=== PATIENT | female | born 1970 | race Caucasian/White ===

== ENCOUNTER 2020-03-27 13:28 | Outpatient (REF) | payer MEDICAID, SELFPAY | END 2020-03-27 13:29 | disposition home or self-care (01) | LOC: HO.LAB 13:28 | PROVIDERS: Visit Provider Internal Medicine | DX: Z20.828 Contact with and (suspected) exposure to other viral communicable diseases (principal) | CPT/HCPCS: 87635 ==

== ENCOUNTER 2020-04-09 09:39 | Outpatient (REF) | payer MEDICAID, SELFPAY ==
--- NOTE | 2020-04-09 09:54 | XR_ITS ---
EXAMINATION: XR HIP, RIGHT CLINICAL INFORMATION: Pain COMPARISON: None TECHNIQUE: Two views of the right hip. FINDINGS: No acute fracture or dislocation. Femoral head is spherical. Small acetabular osteophytes. Hip joint space preserved. Flocculent calcification present along the posterior aspect of the greater trochanter at the posterior insertion of the gluteus medius. Soft tissues otherwise unremarkable. XR/XR hip RT min 2V IMPRESSION: Mild acetabular osteophytosis Greater trochanteric enthesopathy involving the gluteus medius tendon.
== END 2020-04-09 09:40 | disposition home or self-care (01) ==
LOC: HO.XRAY 09:39
PROVIDERS: PCP Internal Medicine; Visit Provider Internal Medicine
DX: M25.551 Pain in right hip (principal)
CPT/HCPCS: 73502

== ENCOUNTER → 2020-05-11 09:46 | Outpatient (BNVA) | payer MEDICAID, SELFPAY | PROVIDERS: Visit Provider Orthopaedic Surgery | DX: M70.61 Trochanteric bursitis, right hip (principal); M76.9 Unspecified enthesopathy, lower limb, excluding foot | CPT/HCPCS: 99202 ==

== ENCOUNTER 2020-05-22 14:01 | Outpatient (RCR) | payer MEDICAID, SELFPAY ==
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
== END 2020-07-08 14:29 | disposition other institution (70) ==
LOC: HO.PT 14:01
PROVIDERS: Visit Provider Orthopaedic Surgery
DX: M70.61 Trochanteric bursitis, right hip (principal); M76.899 Other specified enthesopathies of unspecified lower limb, excluding foot
CPT/HCPCS: 97161

== ENCOUNTER 2020-05-22 15:50 | Outpatient (REF) | payer MEDICAID, SELFPAY | END 2020-05-22 15:51 | disposition home or self-care (01) | LOC: HO.LAB 15:50 | PROVIDERS: Visit Provider Internal Medicine | DX: Z20.828 Contact with and (suspected) exposure to other viral communicable diseases (principal) | CPT/HCPCS: C9803; U0003 ==

== ENCOUNTER 2020-07-15 12:50 | Outpatient (REF) | payer MEDICAID, SELFPAY | END 2020-07-15 12:51 | disposition home or self-care (01) | LOC: HO.LAB 12:50 | PROVIDERS: Visit Provider Internal Medicine | DX: Z20.822 Contact with and (suspected) exposure to COVID-19 (principal) | CPT/HCPCS: 36415; C9803; U0003; U0005 ==

== ENCOUNTER 2021-02-13 14:19 | Emergency (ER) | payer OTHER, MEDICAID, SELFPAY ==
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
[2021-02-13 14:35] VITALS: BP 138/92; PULSE 96; O2SAT 99
[2021-02-13 14:38] VITALS: BP 179/85; PULSE 100; RESP 18; TEMP 36.7; O2SAT 95; BMI 27.4
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
== END 2021-02-13 16:10 | disposition home or self-care (01) ==
PROVIDERS: Emergency Provider Student in an Organized Health Care Education/Training Program; PCP Internal Medicine
DX: S39.012A Strain of muscle, fascia and tendon of lower back, initial encounter (principal); S46.912A Strain of unspecified muscle, fascia and tendon at shoulder and upper arm level, left arm, initial encounter; S30.0XXA Contusion of lower back and pelvis, initial encounter; V43.52XA Car driver injured in collision with other type car in traffic accident, initial encounter; Y93.89 Activity, other specified; Y92.414 Local residential or business street as the place of occurrence of the external cause; Y99.9 Unspecified external cause status
CPT/HCPCS: 72100; 73010; 73030; 99283

== ENCOUNTER 2021-04-16 15:00 | Outpatient (RCR) | payer OTHER, MEDICAID, SELFPAY | END 2021-04-29 11:33 | disposition home or self-care (01) | LOC: HO.PT 15:00 | PROVIDERS: PCP Internal Medicine; Visit Provider Nurse Practitioner Family | DX: M25.512 Pain in left shoulder (principal) | CPT/HCPCS: 97110; 97162 ==

== ENCOUNTER 2023-05-19 15:02 | Emergency (ER) | payer MEDICAID, SELFPAY ==
--- NOTE | ~2023-05-19 | XR_ITS ---
EXAMINATION: XR CHEST CLINICAL INFORMATION: Cough. COMPARISON: None available. TECHNIQUE: Frontal view of the chest was obtained. FINDINGS: No significant abnormality is noted involving the heart, lungs, mediastinum, bony thorax or soft tissues. XR/XR chest 1V IMPRESSION: Unremarkable chest examination.
[2023-05-19 15:31] VITALS: BP 120/73; PULSE 128; RESP 16; TEMP 37.4; O2SAT 97; BMI 28.3
--- NOTE | 2023-05-19 15:31 | ED.GENADULT ---
HPI - General Adult General Chief complaint: General Medical Stated complaint: vomiting, diarrhea, chest pain Time Seen by Provider: 05/19/23 18:42 History of Present Illness HPI narrative: 52 y/o F patient; without significant PMH; presents from home with report of 24 hours of nausea/vomiting, diarrhea, and diffuse generalized body aches. The patient has had multiple sick contacts at home. She also reports non-productive cough, congestion, epigastric abdominal discomfort, and a tactile temperature at home. She denies: chest pain, headache, weakness, lightheadedness. Related Data Home Medications Medication Instructions Recorded Confirmed acetaminophen 500 mg capsule 500 mg PO Q6H PRN 04/21/20 05/11/20 (Mapap (acetaminophen)) cholecalciferol (vitamin D3) 25 25 mcg PO DAILY 04/21/20 05/11/20 mcg (1,000 unit) capsule cyclobenzaprine 5 mg tablet 5 mg PO TID PRN 04/21/20 05/11/20 dextromethorphan polistirex 30 10 ml PO Q12H 04/21/20 05/11/20 mg/5 mL oral susp ext.release 12hr (Cough DM ER) fluticasone propionate 50 1 spray intranasal DAILY 04/21/20 05/11/20 mcg/actuation nasal spray,suspension ibuprofen 800 mg tablet 800 mg PO Q8H 04/21/20 05/11/20 ketotifen fumarate 0.025 % (0.035 1 drp ophthalmic (eye) BID 04/21/20 05/11/20 %) eye drops loratadine 10 mg tablet (Claritin) 10 mg PO DAILY 04/21/20 05/11/20 Previous Rx's Medication Instructions Recorded acetaminophen 500 mg tablet 1,000 mg (2 x 500 mg) PO QID PRN 02/13/21 (Tylenol Extra Strength) fever or pain #14 tabs cyclobenzaprine 10 mg tablet 10 mg PO Q8H Muscle spasm #10 tabs 02/13/21 ibuprofen 800 mg tablet 800 mg PO Q8H PRN pain #14 tabs 02/13/21 nitrofurantoin 100 mg PO Q12H 7 days #14 caps 05/19/23 monohydrate/macrocrystals 100 mg capsule (Macrobid) ondansetron 4 mg disintegrating 4 mg PO Q8H PRN nausea and 05/19/23 tablet vomiting 7 days #14 tabs Allergies Allergy/AdvReac Type Severity Reaction Status Date / Time No Known Allergies Allergy Verified 05/11/20 10:21 [No Known Allergies*] Review of Systems Review of Systems: Yes all other systems are reviewed and are negative [facility] Past Medical History Attestation statement: The following information was validated with the patient. Source: old records reviewed Medical History Trochanteric bursitis Hip abductor tendonitis Depression Elevated LFTs Hypothyroidism Vitamin D deficiency Artificial menopause Mood disorder Social History Social History Alcohol intake: never Smoked in Last 30 Days: No Use of substances other than those prescribed or required for medical reasons: No Advance Directives: No Advance Directives Information Provided: No Current occupational status: employed Current occupation: loading and unloading trucks Physical Exam ED Vital Signs: Vital Signs - 24 hr 05/19/23 15:31 05/19/23 21:21 Temperature 99.4 F 97.9 F Pulse Rate 128 H 101 H Respiratory Rate 16 26 H Blood Pressure 120/73 126/77 Pulse Oximetry 97 93 Oxygen Delivery Method Room Air Room Air BMI result Body Mass Index 28.3 Patient is afebrile, mildly tachycardic. Const General: comfortable and no acute distress HENMT Head: Yes normal to inspection and Yes normocephalic Throat: Yes posterior oropharynx normal, Yes tonsils normal and Yes uvula midline Eyes General: appearance normal, both eyes and all related structures Pupils: Equal, round and reactive pupils present EOM: EOMs intact bilaterally Neck Neck: Yes full ROM and Yes supple Chest Chest palpation & inspection: normal inspection of the chest and normal palpation of entire chest wall Resp Effort & Inspection: normal respiratory effort, able to speak in complete sentences and no respiratory distress Auscultation: clear to auscultation bilaterally Cardio Rate: tachycardic Rhythm: regular rhythm Peripheral pulses: Peripheral pulses 2+ throughout GI Inspection: Yes normal to inspection and No distended Palpation (GI): Soft to palpation, not firm, no guarding, not rigid and Other GI palpation findings present (Mild epigastric abdominal tenderness) Auscultation: normal bowel sounds General: Yes no CVA tenderness Back/Spine/Pelvis Back: no CVA tenderness Neuro Cranial nerves: Yes Equal, round and reactive pupils present Course Course Course Narrative: RME- 52-year-old female presents for evaluation of body aches, vomiting, diarrhea. Her son was sick with similar symptoms as today. Plan for labs, viral swab Reevaluation(s) Reevaluation #1: Patient is afebrile, mildly tachycardic. Reviewed triage labs. No leukocytosis. Mildly elevated LFTs, but have previously been elevated. Respiratory swab negative. Ordered IVF, Zofran 4mg IV, Toradol 15mg IV. EKG: ST 113BPM without ischemic changes Reevaluation #2: CXR unremarkable. Pending UA. Patient reported improvement in symptoms following IVF and Zofran. Plan: Transition care to night physician pending UA results and disposition Condition: Stable Medications Administered Discontinued Medications Generic Name Dose Route Start Last Admin Trade Name Freq PRN Reason Stop Dose Admin Sodium Chloride 1,000 mls @ 999 mls/hr 05/19/23 19:00 05/19/23 21:10 Ns IV 05/19/23 20:00 Infused .Q1H1M TIA Infusion Ketorolac Tromethamine 15 mg 05/19/23 18:58 05/19/23 19:57 Ketorolac Tromethamine 15 Mg/Ml Vial IVPUSH 05/19/23 18:59 15 mg ONCE ONE Administration Ondansetron HCl 4 mg 05/19/23 18:54 05/19/23 19:57 Ondansetron Hcl 4 Mg/2 Ml Vial IVPUSH 05/19/23 18:55 4 mg ONCE ONE Administration Medical Decision Making Medical Decision Making [facility] Narrative: -I received sign-out from Dr. Gunter -urinalysis shows trace leukocyte esterase, white blood cell count present, urine bacteria negative. However, due to patient's symptoms, we will go ahead and treat as a UTI. First dose given in the ED. Lab Data 05/19/23 15:46 05/19/23 15:46 Labs: Lab Results 05/19/23 05/19/23 Range/Units 15:46 22:20 WBC 8.7 (4.8-10.8) X10*3/uL RBC 5.23 (4.20-5.50) X10*6/uL Hgb 15.2 (12.0-16.0) g/dl Hct 44.5 (37.0-47.0) % MCV 85.1 (80.0-98.0) fL MCH 29.1 (27.0-33.0) pg MCHC 34.2 (31.0-35.0) g/dl RDW 13.5 (11.0-16.0) % Plt Count 271 (160-400) X10*3/uL MPV 9.4 (9.4-12.3) fL Immature Gran % (Auto) 0.2 (0.0-0.4) % Neut % (Auto) 89.2 H (45-73) % Lymph % (Auto) 5.8 L (20-40) % [place] % (Auto) 3.2 (2-11) % Eos % (Auto) 1.3 (0-4) % Baso % (Auto) 0.3 (0-2) % Lymph # (Auto) 0.5 L (1.2-4.9) X10*3/uL [place] # (Auto) 0.3 (0.1-1.2) X10*3/uL Eos # (Auto) 0.1 (0.0-0.4) X10*3/uL Baso # (Auto) 0.0 (0.0-0.2) X10*3/uL Abs Immat Gran (auto) 0.02 (0.00-0.03) X10*3/uL Absolute Neuts (auto) 7.7 (2.0-8.3) x10*3/uL Absolute Nucleated RBC 0.000 (0.0-0.012) X10*3/uL Nucleated RBC % (auto) 0.0 (0.0-0.2) /100WBC Sodium 144 (135-145) mmol/L Potassium 4.0 (3.3-5.1) mmol/L Chloride 110 H (96-108) mmol/L Carbon Dioxide 28 (22-29) mmol/L Anion Gap 10 L (12-20) BUN 13 (9-16) mg/dL Creatinine 0.84 (0.5-1.4) mg/dL Estim Creat Clear Calc 71.9 Estimated GFR > 60 Random Glucose 132 H (60-115) mg/dL Calcium 9.4 (8.4-10.2) mg/dL Total Bilirubin 0.6 (0.0-1.0) mg/dL AST 39 H (5-31) U/L ALT 62 H (0-31) U/L Alkaline Phosphatase 172 H (39-117) U/L Total Protein 7.7 (6.5-8.0) g/dL Albumin 4.2 (3.5-5.0) g/dL Lipase 17 (8-78) U/L Urine Color Yellow Urine Appearance Clear Urine pH 6.0 (5.0-9.0) Ur Specific [place] 1.025 (1.005-1.025) Urine Protein Negative (Neg-Trace) mg/dL Urine Glucose (UA) Negative (Negative) mg/dL Urine Ketones Trace (Negative) mg/dL Urine Blood Negative (Negative) Urine Nitrite Negative (Negative) Ur Leukocyte Esterase Trace H (Negative) Urine RBC 0-2 (0-2) /HPF Urine WBC 6-10 H (0-5) /HPF Ur Squamous Epith Cells 0-2 (0-2) /HPF Urine Bacteria None Seen (None Seen) Hyaline Casts 0-2 (0-2) /LPF Influenza Type A (PCR) NEGATIVE (Negative) Influenza Type B (PCR) NEGATIVE (Negative) RSV RNA Qual (PCR) NEGATIVE (Negative) SARS-CoV-2 RNA (RT-PCR) NEGATIVE (Negative) Discharge Plan Discharge Clinical Impression: Nausea & vomiting, UTI (urinary tract infection) Patient Disposition: Home, Self-Care Instructions: Acute Nausea and Vomiting (ED) Additional Instructions: Daniel comentamos, hoy lo atendieron por n?useas, v?mitos y diarrea. Sidra an?lisis y CXR fueron tranquilizadores. Lo trataron con medicamentos para las n?useas, analg?sicos y l?quidos intravenosos. Jennifer un seguimiento con perry PCP dentro de la pr?xima semana para analizar perry reciente visita al servicio de urgencias. Regrese al servicio de urgencias si el dolor abdominal empeora o si no puede beber agua. Prescriptions: New ondansetron 4 mg tablet,disintegrating 4 mg PO Q8H PRN (Reason: nausea and vomiting) 7 Days Qty: 14 0RF nitrofurantoin monohyd/m-cryst [Macrobid] 100 mg capsule 100 mg PO Q12H 7 Days Qty: 14 0RF Rx Instructions: must administer with a meal/food No Action cyclobenzaprine 10 mg tablet 10 mg PO Q8H Qty: 10 0RF ibuprofen 800 mg tablet 800 mg PO Q8H PRN (Reason: pain) Qty: 14 0RF acetaminophen [Tylenol Extra Strength] 500 mg tablet 1,000 mg PO QID PRN (Reason: fever or pain) Qty: 14 0RF fluticasone propionate 50 mcg/actuation spray,suspension 1 spray intranasal DAILY Rx Instructions: administer into each nostril cholecalciferol (vitamin D3) 25 mcg (1,000 unit) capsule 25 mcg PO DAILY acetaminophen [Mapap (acetaminophen)] 500 mg capsule 500 mg PO Q6H PRN dextromethorphan polistirex [Cough DM ER] 30 mg/5 mL suspension,extended rel 12 hr 10 ml PO Q12H ketotifen fumarate 0.025 % (0.035 %) drops 1 drp ophthalmic (eye) BID Rx Instructions: administer at least 8 hours apart loratadine [Claritin] 10 mg tablet 10 mg PO DAILY ibuprofen 800 mg tablet 800 mg PO Q8H cyclobenzaprine 5 mg tablet 5 mg PO TID PRN Referrals: Pascale Rivas MD [Primary Care Provider] - Print Language: Vietnamese
[2023-05-19 15:51] LABS: MANUAL DIFF FLAG NO
[2023-05-19 15:52] LABS: Basophils Percent Auto 0.3 % (0-2); Eosinophils Absolute Auto 0.1 X10*3/uL (0.0-0.4); Eosinophils Percent Auto 1.3 % (0-4); Hematocrit 44.5 % (37.0-47.0); Hemoglobin 15.2 g/dl (12.0-16.0); Imm Gran Abs Auto 0.02 X10*3/uL (0.00-0.03); Imm Gran Pct Auto 0.2 % (0.0-0.4); Lymphocytes Absolute Auto 0.5 X10*3/uL (1.2-4.9); Lymphocytes Percent Auto 5.8 % (20-40); Mean Corpuscular HGB Conc 34.2 g/dl (31.0-35.0); Mean Corpuscular Hemoglobin 29.1 pg (27.0-33.0); Mean Corpuscular Volume 85.1 fL (80.0-98.0); Mean Platelet Volume 9.4 fL (9.4-12.3); Monocytes Absolute Auto 0.3 X10*3/uL (0.1-1.2); Monocytes Percent Auto 3.2 % (2-11); Neutrophils Absolute Auto 7.7 x10*3/uL (2.0-8.3); Neutrophils Percent Auto 89.2 % (45-73); Platelet Count 271 X10*3/uL (160-400); Red Blood Count 5.23 X10*6/uL (4.20-5.50); Red Cell Distribution Width 13.5 % (11.0-16.0); White Blood Count 8.7 X10*3/uL (4.8-10.8)
[2023-05-19 16:11] LABS: Alanine Aminotransferase 62 U/L (0-31); Albumin Level 4.2 g/dL (3.5-5.0); Alkaline Phosphatase 172 U/L (39-117); Anion Gap 10 (12-20); Aspartate Amino Transferase 39 U/L (5-31); Bilirubin Total 0.6 mg/dL (0.0-1.0); Blood Urea Nitrogen 13 mg/dL (9-16); Calcium 9.4 mg/dL (8.4-10.2); Carbon Dioxide 28 mmol/L (22-29); Chloride 110 mmol/L (96-108); Creatinine Clr Calc Pharmacy 71.9; Estimated Glomerular Filt Rate > 60; Glucose Random 132 mg/dL (60-115); Lipase 17 U/L (8-78); Sodium 144 mmol/L (135-145); Total Protein 7.7 g/dL (6.5-8.0)
[2023-05-19 17:18] LABS: Influenza A PCR NEGATIVE (Negative); Influenza B PCR NEGATIVE (Negative); Resp Syncy Virus RNA Qual PCR NEGATIVE (Negative); SARS COV2 PCR INHOUSE NEGATIVE (Negative)
--- NOTE | 2023-05-19 19:01 | ECG_ITS ---
Test Reason : CHEST PAIN Blood Pressure : / mmHG Vent. Rate : 113 BPM Atrial Rate : 113 BPM P-R Int : 160 ms QRS Dur : 080 ms QT Int : 328 ms P-R-T Axes : 053 022 044 degrees QTc Int : 449 ms Sinus tachycardia Cannot rule out Inferior infarct , age undetermined Cannot rule out Anterior infarct , age undetermined changes could be all related to body habitus and lead placement Abnormal ECG When compared with ECG of 19-JUL-2018 01:49, Minimal criteria for Inferior infarct are now Present Referred By: Tali Gunter Electronically Signed By:NOMI PALUMBO
[2023-05-19] MEDS: 0.9 % Sodium Chloride 1,000 ML 999 ML IV (19:57)
[2023-05-19] MEDS: ondansetron HCL 4 MG/2 ML VIAL IVPUSH (19:57)
[2023-05-19] MEDS: Ketorolac Tromethamine 15 MG/ML VIAL IVPUSH (19:57)
[2023-05-19 21:21] VITALS: BP 126/77; PULSE 101; RESP 26; TEMP 36.6; O2SAT 93
--- NOTE | 2023-05-19 22:01 | PC.NURSE ---
pt assisted to bathroom by this rn, pt ambulated with steady gait. urine sample obtained.
[2023-05-19 22:44] LABS: Appearance Urine Clear; Color Urine Yellow; Glucose Urine UA Negative (Negative); Leukocyte Esterase Urine Trace (Negative); Nitrite Urine Negative (Negative); Specific Gravity - Urine 1.025 (1.005-1.025); UMIC TRIGGER UACC YES; Urine Blood Negative (Negative); Urine Ketones Trace mg/dL (Negative); Urine Protein Negative (Neg-Trace)
[2023-05-19 22:49] LABS: Bacteria Urine None Seen (None Seen); Hyaline Casts Urine 0-2 /LPF (0-2); RBC Urine 0-2 /HPF (0-2); Squamous Epithelial Cell Urine 0-2 /HPF (0-2); UACC Culture Trigger YES
[2023-05-20] MEDS: Nitrofurantoin Monohyd/M-Cryst 100 MG CAPSULE PO (00:03)
[2023-05-20 00:06] VITALS: BP 112/75; PULSE 80; RESP 16; TEMP 37.1; O2SAT 98
== END 2023-05-20 00:08 | disposition home or self-care (01) ==
PROVIDERS: Physician Assistant; Emergency Provider Emergency Medicine; PCP Internal Medicine
DX: R11.2 Nausea with vomiting, unspecified (principal); N39.0 Urinary tract infection, site not specified; M79.10 Myalgia, unspecified site; R05.9 Cough, unspecified; R00.0 Tachycardia, unspecified; R10.13 Epigastric pain; R50.9 Fever, unspecified; Z79.899 Other long term (current) drug therapy
CPT/HCPCS: 0241U; 71045; 80053; 81001; 83690; 85025; 87086; 93005; 96361; 96374; 96375; 99285; J1885; J2405

== ENCOUNTER → 2023-05-19 19:01 | Outpatient (BNV) | payer MEDICAID, SELFPAY | PROVIDERS: Emergency Provider Emergency Medicine; PCP Internal Medicine; Visit Provider Internal Medicine | DX: R00.0 Tachycardia, unspecified (principal); R94.31 Abnormal electrocardiogram [ECG] [EKG] | CPT/HCPCS: 93010 ==

== ENCOUNTER 2025-05-21 17:02 | Emergency (ER) | payer MEDICAID, SELFPAY ==
--- NOTE | ~2025-05-21 | XR_ITS ---
CLINICAL HISTORY: CP 2 view chest x-ray Comparison: CR/SR - XR CHEST 2 VIEWS - 05/19/23 19:45 EST Findings: Normal size heart. No consolidation, pleural effusion or pneumothorax. No acute fracture. IMPRESSION: 1. No acute findings. This document has been electronically signed by: Nany Noland MD on 05/21/2025 18:55:11
--- NOTE | 2025-05-21 17:05 | ECG_ITS ---
Test Reason : cp Blood Pressure : */* mmHG Vent. Rate : 100 BPM Atrial Rate : 100 BPM P-R Int : 156 ms QRS Dur : 76 ms QT Int : 332 ms P-R-T Axes : 54 28 45 degrees QTcB Int : 428 ms Normal sinus rhythm Normal ECG When compared with ECG of 19-May-2023 19:34, No significant change was found Referred By: Generic ED Physician Electronically Signed By: CHRISSY MEREDITH MD
--- NOTE | 2025-05-21 17:22 | PC.NURSE ---
called now for triage no answer
[2025-05-21 17:47] VITALS: BP 143/74; PULSE 99; RESP 18; TEMP 36.2; O2SAT 95; BMI 23.9
[2025-05-21 18:37] LABS: MANUAL DIFF FLAG NO
[2025-05-21 18:39] LABS: Hematocrit 42.2 % (37.0-47.0); Hemoglobin 15.0 g/dl (12.0-16.0); Imm Gran Abs Auto 0.01 X10*3/uL (0.00-0.03); Imm Gran Pct Auto 0.2 % (0.0-0.4); Lymphocytes Absolute Auto 1.7 X10*3/uL (1.2-4.9); Mean Corpuscular HGB Conc 35.5 g/dl (31.0-35.0); Mean Corpuscular Hemoglobin 29.8 pg (27.0-33.0); Mean Corpuscular Volume 83.9 fL (80.0-98.0); NRBC Abs Auto 0.000 X10*3/uL (0.0-0.012); NRBC Pct Auto 0.0 /100WBC (0.0-0.2); Platelet Count 265 X10*3/uL (160-400); Red Blood Count 5.03 X10*6/uL (4.20-5.50); White Blood Count 6.6 X10*3/uL (4.8-10.8)
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
[2025-05-21 19:04] LABS: Troponin-I High Sensitivity < 2.7 ng/L (<3.5-17.0)
[2025-05-21 19:09] LABS: Alanine Aminotransferase 43 U/L (0-31); Albumin Level 3.9 g/dL (3.5-5.0); Alkaline Phosphatase 247 U/L (39-117); Anion Gap 12 (12-20); Aspartate Amino Transferase 24 U/L (5-31); Blood Urea Nitrogen 15 mg/dL (9-16); Calcium 9.0 mg/dL (8.4-10.2); Carbon Dioxide 26 mmol/L (22-29); Chloride 100 mmol/L (96-108); Creatinine Clr Calc Pharmacy 64.3; Estimated Glomerular Filt Rate > 60; Magnesium 1.9 mg/dL (1.6-2.6); Potassium 3.8 mmol/L (3.3-5.1); Sodium 134 mmol/L (135-145); Total Protein 7.2 g/dL (6.5-8.0)
[2025-05-21 19:24] LABS: Glucose, Whole Blood 466 mg/dL (60-115)
[2025-05-21 20:39] LABS: Appearance Urine Clear; Glucose Urine UA >=1000 mg/dL (Negative); PH 5.5 (5.0-9.0); Specific Gravity - Urine >= 1.030 (1.005-1.025); UMIC TRIGGER UACC YES
[2025-05-21 21:12] LABS: VBG HCO3 27 mmol/L (22-26); VBG O2 % Saturation 67.0 %
[2025-05-21 21:12] LABS: Venous Blood Gas Refer to POC result
[2025-05-21] MEDS: Lactated Ringers 1,000 ML 999 ML IV ×2 (21:25→22:14)
[2025-05-21 21:32] LABS: Glucose, Whole Blood 396 mg/dL (60-115)
[2025-05-21 23:39] LABS: Glucose, Whole Blood 287 mg/dL (60-115)
[2025-05-22 00:31] VITALS: BP 139/82; PULSE 74; RESP 20; TEMP 36.6; O2SAT 94
[2025-05-22 01:00] VITALS: BP 139/82; PULSE 74; RESP 20; TEMP 36.6; O2SAT 94
--- OUTSIDE RECORDS SUMMARY | 2025-05-22 01:00 | XMS_ITS | Encounter Summary ---
Author Organization [employer] Address [address] [place] [address] Care Team Providers Care Paste Up Copy Camera Operator Name Role Phone Pascale Rivas MD Primary Care Provide r Encounter Details Date Type Department Care Team ([facility] st Contact Info) Description 01/06/2023 Orders Only [facility] MEDICINE [address] [place] [address] Jaja Rivas RN [address] [place] [address] Social History Tobacco Use Types Packs/Day Years Used Date Smoking Tobacco: Never Smokeless Tobacco: Never Comments Unknown Sex and Gender Information Value Date Recorded Sex Assigned at Female 04/11/2022 10:26 AM EDT Legal Sex Female 10:26 AM EDT Gender Identity Female 04/11/2022 10:26 AM EDT Sexual Orientation Straight 04/11/2022 10 :26 AM EDT documented as of this encounter Plan of Treatment Not on file documented as of this encounter Procedures Procedure Name Priority Date/Time Associated Diagnosis Comments URINALYSIS, COMPLETE, WITH REFLEX TO CULTURE Routine 05/19/2023 10:20 PM EST SARS COV2/INFLUENZA A/B AND RSV RNA QL NAAT Routine 05/19/2023 3:46 PM EST CBC WITH AUTO DIFFERENTIAL Routine 05/19/2023 3:46 PM EST LIPASE Routine 05/19/2023 3:46 PM EST COMPREHENSIVE METABOLIC PANEL Routine 05/19/2023 3:46 PM EST CULTURE, URINE, ROUTINE Routine 05/19/2023 12:00 AM EST HM PAP/HPV Routine 10/25/2018 12:00 AM EDT documented in this encounter Results * (ABNORMAL) Urinalysis, Complete, with Reflex to Culture (05/19/2023 10:20 PM EST) Color Urine Yellow [facility] Appearance Urine Clear [facility] PH 6.0 5.0 - 9.0 [facility] Glucose Urine UA Negative Negative mg/dL [facility] Urine Blood Negative Negative [facility] Specific Cameron - Urine 1.025 1.005 - 1.025 [facility] Urine Protein Negative Neg-Trace mg/dL [facility] Urine Ketones Trace Negative mg/dL [facility] Nitrite Urine Negative Negative [facility] Leukocyte Esterase Urine Trace(A) Negative [facility] RBC Urine 0-2 0 - 2 /HPF [facility] Urine WBC 6-10(A) 0 - 5 /HPF [facility] Urine Squamous Epithelial Cell 0-2 0 - 2 /HPF [facility] Urine Bacteria None Seen None Seen [facility] Hyaline Casts, Urine 0-2 0 - 2 /LPF [facility] 05/19/2023 10:2 0 PM EST 05/19/2023 10:40 PM EST Narrative [facility] - 05/19/2023 10:54 PM EST [id number], Clean Catch us Generic External Data Provider LAB URINE ORDERAB LES Final Result [facility] [address] [place] [phone] * SARS-CoV-2 RNA, Influenza A/B, and RSV RNA, Ql NAAT (05/19/2023 3:46 PM EST) Influenza A PCR NEGATIVE Negative [facility] Influenza B PCR NEGATIVE Negative [facility] Resp Syncy Virus RNA Qual PCR NEGATIVE Negative [facility] SARS COV2 PCR NEGATIVE Negative [facility] Comment:All test results mus t be correlated with clinical findings.Negative results do not preclude SARS-CoV2, influenza Avirus, influenza B virus and/or RSV infectionand should not be used as the sole basis for treatment orother patient management decisions. Negative results must becombined with clinical observations, patient history, andepidemiological information.This test has not been evaluated for monitoring treatment ofinfection.This test has been authorized by the FDA under an EmergencyUse Authorization (EUA) for use by authorized laboratories.Testing performed on the Elli GeneXpert utilizingreal-time RT-PCR.All SARS CoV2 and positive influenza A/B results arereported to [facility]. 05/19/2023 3:46 PM EST 05/19/2023 3:49 PM EST Generic External Data Provider LAB MICROBIOLOGY - GENERAL ORDERABLES Final Result Performing Organization Address [facility]/ZIP Co de Phone Number [facility] [address] [place] [phone] * Lipase (05/19/2023 3:46 PM EST) [facility] Lipase 17 8 - 78 U/L [facility] 05/19/2023 3:46 PM EST 05/19/2023 3:49 PM EST Generic External Data Provider LAB BLOOD ORDERAB LES Final Result Performing Organization Address [facility] Co de Phone Number [facility] [address] [place] [phone] * (ABNORMAL) Comprehensive Metabolic Panel (05/19/2023 3:46 PM EST) [facility] Sodium 144 135 - 145 mmol/L [facility] Potassium 4.0 3.3 - 5.1 mmol/L [facility] Chloride 110(H) 96 - 108 mmol/L [facility] Carbon Dioxide 28 22 - 29 mmol/L [facility] Anion Gap 10(L) 12 - 20 [facility] Urea Nitrogen (BUN) 13 9 - 16 mg/dL [facility] Creatinine, Serum 0.84 0.5 - 1.4 mg/dL [facility] Creatinine Clr Calc Pharmacy 71.9 [facility] Comment:Provided height and weight: 157.48 cm,70.307 kg.eGFR (calculated from the MDRD study equation) and eCrCl(calculated from the Cockcroft-Gault equation) are based ondifferent parameters and may not yield comparable results.If eCrCl result is absurd, please check patient'sheight/weight. Estimated Glomerular Filt Rate >60 [facility] Comment:NOTE: For -Am erican individuals, multiply the result by 1.210.Chronic Kidney Disease: Estimated GFR < 60 mL/min/[id number] Kidney Disease: Estimated GFR < 15 mL/min/1.73m2 Glucose 132(H) 60 - 115 mg/dL [facility] Calcium 9.4 8.4 - 10.2 mg/dL [facility] Bilirubin, Total 0.6 0.0 - 1.0 mg/dL [facility] Aspartate Amino Transferase 39(H) 5 - 31 U/L [facility] Alanine Aminotransferase 62(H) 0 - 31 U/L [facility] Total Protein 7.7 6.5 - 8.0 g/dL [facility] Albumin Level 4.2 3.5 - 5.0 g/dL [facility] Alkaline Phosphatase 172(H) 39 - 117 U/L [facility] 05/19/2023 3:46 PM EST 05/19/2023 3:49 PM EST us Generic External Data Provider LAB BLOOD ORDERAB LES Final Result [facility] [address] [place] [phone] * (ABNORMAL) CBC auto differential (05/19/2023 3:46 PM EST) White Blood Count 8.7 4.8 - 10.8 X10*3/uL [facility] Red Blood Count 5.23 4.20 - 5.50 X10*6/uL [facility] Hemoglobin 15.2 12.0 - 16.0 g/dl [facility] Hematocrit 44.5 37.0 - 47.0 % [facility] Mean Corpuscular Volume 85.1 80.0 - 98.0 fL [facility] Mean Corpuscular Hemoglobin 29.1 27.0 - 33.0 pg [facility] Mean Corpuscular HGB Conc 34.2 31.0 - 35.0 g/dl [facility] Red Cell Distribution Width 13.5 11.0 - 16.0 % [facility] Platelet Count 271 160 - 400 X10*3/uL [facility] Mean Platelet Volume 9.4 9.4 - 12.3 fL [facility] Neutrophils Percent Auto 89.2(H) 45 - 73 % [facility] Imm Gran Pct Auto 0.2 0.0 - 0.4 % [facility] Lymphocytes Percent Auto 5.8(L) 20 - 40 % [facility] Monocytes Percent Auto 3.2 2 - 11 % [facility] Eosinophils Percent Auto 1.3 0 - 4 % [facility] Basophils Percent Auto 0.3 0 - 2 % [facility] NRBC Pct Auto 0.0 0.0 - 0.2 /100WBC [facility] Neutrophils Absolute Auto 7.7 2.0 - 8.3 x10*3/uL [facility] Imm Gran Abs Auto 0.02 0.00 - 0.03 X10*3/uL [facility] Lymphocytes Absolute Auto 0.5(L) 1.2 - 4.9 X10*3/uL [facility] Monocytes Absolute Auto 0.3 0.1 - 1.2 X10*3/uL [facility] Eosinophils Absolute Auto 0.1 0.0 - 0.4 X10*3/uL [facility] Basophils Absolute Auto 0.0 0.0 - 0.2 X10*3/uL [facility] NRBC Abs Auto 0.000 0.0 - 0.012 X10*3/uL [facility] 05/19/2023 3:46 PM EST 05/19/2023 3:49 PM EST us Generic External Data Provider LAB BLOOD ORDERAB LES Final Result Performing Organization Address [facility]/ZIP Co de Phone Number [facility] [address] [place] [phone] [phone] * Culture, Urine, Routine (05/19/2023 12:00 AM EST) Urine Urine specimen obtained by clean catch procedure / Unknown 05/19/2023 05/19/2023 Comment:UACC Narrative [facility] - 05/21/2023 9:11 AM EST Urine Culture Report Result Urine Culture < 10,000 cfu/ml Specimen Source: Urine clean catch us Generic External Data Provider LAB MICROBIOLOGY - GENERAL ORDERABLES Final Result Performing Organization Address [facility] Co de Phone Number [facility] [address] [place] [phone] * Hm Pap Smear (10/25/2018 12:00 AM EDT) us Rashida Ortiz [facility] HEALTH MAINTENANCE Final Result Performing Organization Address [facility] Co de Phone Number [address], [place] [phone] documented in this encounter Visit Diagnoses Not on filedocumented in this encounter Care Teams Paste Up Copy Camera Operator Relationship Specialty Start Date End Date Pascale Rivas MD [address] [place] [phone] PCP - General Family Medicine 01/07/19 06/15/23 documented as of this encounter
--- OUTSIDE RECORDS SUMMARY | 2025-05-22 01:00 | XMS_ITS | Clinical Summary ---
Author Organization [employer] Address [address] [facility] [address] [place] [address] Care Team Providers Care Regulator Inspector Name Role Phone Unavailable Primary Care Provider Unavailabl e Allergies No known active allergies Medications No known medications Active Problems Problem Noted Date Diagnosed Date Neck pain 03/13/2023 Acute low back pain 03/13/2023 Chronic low back pain 03/13/2023 Mixed anxiety and depressive disorder 10/16/2018 Vitamin D deficiency 10/17/2017 Elevated LFTs 10/17/2017 Acquired hypothyroidism 10/17/2017 Postartificial menopausal syndrome 10/04/2017 Mood disorder 10/04/2017 Calcaneal spur 10/04/2017 Immunizations Immunization Administration Dates Next Due Hep A, Adult 10/17/2017 Hep B, adult 10/17/2017 Tdap 10/04/2017 Family History Medical History Relation Name Comments Breast cancer Mother's Sister Glaucoma Paternal Grandmother Relation Name Status Comments Mother's Sister Paternal Grandmother Social History Tobacco Use Types Packs/Day Years Used Date Smoking Tobacco: Never Smokeless Tobacco: Never Housing Stability Answer Date Recorded What is your housing situation today? I have thuan landeros 04/17/[address] you li ve. Do you have problems with any of the following? None of the above 04/17/2023 Food Insecurity Answer Date Recorded Within the past 12 months, y ou worried that your food would run out before you got money to buy more: Never True 04/17/2023 Within the past 12 months,th e food you bought just didn't last and you didn't have enough money to get more: Never True 11/2022 Transportation Answer Date Recorded In the past 12 months, has l ack of transportation kept you from medical appts, meetings, work or from getting things needed for daily living? No 04/17/2023 Utilities Answer Date Recorded In the past 12 months, has t he electric, gas, oil or water company threatened to shut off services in your home? No 04/17/2023 Comments Unknown Sex and Gender Information Value Date Recorded Sex Assigned at Female 04/11/2022 10:26 AM EDT Legal Sex Female 10:26 AM EDT Gender Identity Female 04/11/2022 10:26 AM EDT Sexual Orientation Straight 04/11/2022 10 :26 AM EDT Last Filed Vital Signs Vital Sign Reading Time Taken Comments Blood Pressure 122/80 10/19/2021 12:05 AM EDT Pulse 78 10/19/2021 12:05 AM EDT Temperature - - Respiratory Rate - - Oxygen Saturation - - Inhaled Oxygen Concentration - - Weight 70.9 kg (156 lb 3.2 oz) 10/19/2021 12:05 AM EDT Height 157.5 cm (5' 2 ) 10/19/2021 12:05 AM EDT Body Mass Index 28.57 10/19/2021 12:05 AM EDT Plan of Treatment Health Maintenance Due Date Last Done Comments CT Colonography 1970 Colonoscopy 1970 Colorectal Cancer Screening 1970 Depression Screening 1970 FIT DNA/Cologuard 1970 FIT 1970 FOBT 1970 HIV Screening 1970 Sigmoidoscopy 1970 Disability Screening 1970 Alcohol/Substance Use Screening 1982 Hepatitis C Screening 1988 Mammogram 2010 Hepatitis B Vaccines (2 of 3 - 19+ 3-dose series) 11/14/2017 10/17/2017 Pneumococcal Vaccine: 50+ Ye ars (1 of 1 - PCV) 2020 Zoster Vaccines (1 of 2) 2020 Cervical Cancer Screening 10/25/2021 HPV/Cotest 10/25/2021 10/25/2018 Pap Smear 10/25/2021 10/25/2018 Tobacco Screening 01/06/2024 01/05/2023 SDOH Screening 03/06/2024 03/06/2023 COVID-19 Vaccine (1 - 2024-2 6 season) 2025 Influenza Vaccine (#1) 2025 DTaP/Tdap/Td Vaccines (2 - T d or Tdap) 10/05/2027 10/04/2017 RSV Patients and Pa tients Aged 60 years or older (1 - 1-dose 75+ series) 2045 Hepatitis A Vaccines Aged Out 10/17/2017 No long er eligible based on patient's age to complete this topic HIB Vaccines Aged Out No longer eligi ble based on patient's age to complete this topic HPV Vaccines Aged Out No longer eligi ble based on patient's age to complete this topic IPV Vaccines Aged Out No longer eligi ble based on patient's age to complete this topic Meningococcal B Vaccine Aged Out No l onger eligible based on patient's age to complete this topic Meningococcal Vaccine Aged Out No vicente faizan eligible based on patient's age to complete this topic RSV under 20 months Aged Out No longe r eligible based on patient's age to complete this topic Rotavirus Vaccines Aged Out No longer eligible based on patient's age to complete this topic Procedures Procedure Name Priority Date/Time Associated Diagnosis Comments ZZZ HISTORICAL HPV MRNA E6/E7 Routine 10/25/2018 10:43 AM EDT HM PAP/HPV Routine 10/25/2018 12:00 AM EDT from Last 3 Months or Most Recently Relevant to Health Maintenance Results * HPV mRNA E6/E7 (10/25/2018 10:43 AM EDT) HPV mRNA E6/E7 Not Detected NOT DETECTED [facility] Comment: This test was performed using the APTIMA(R) HPV Assay ([employer] This assay detects E6/E7 viral messenger RNA (mRNA) from 14 high-risk HPV types (16,18,31,33,35,39,45,51, 52,56,58,59,66,68). For additional information please refer to: http://education.Transave/faq/GAK676z0 (This link is being provided for informational/ educational purposes only.) The analytical performance characteristics of this assay have been determined by [facility] [place], [place]. The modifications have not been cleared or approved by the FDA. This assay has been validated pursuant to the CLIA regulations and is used for clinical purposes. Test Performed by [facility], [facility], [address] [place] [address] Sarthak Dee M.D., Ph.D., Director of Laboratories , CLIA [id number] Please note: Effective 02/22/2016, HPV testing will be performed using [employer]'s APTIMA test which targets mRNA. Detecting mRNA instead of DNA, as in older methods, offers significant improvements in specificity. 10/25/2018 10:4 3 AM EDT Rashida Ortiz CNM HISTORICAL/NON ORDERABLE LABS Final Result [facility] [address] * Hm Pap Smear (10/25/2018 12:00 AM EDT) Rashida Ortiz CNM HEALTH MAINTENANCE Final Result [facility] [address], [place] [phone] from Last 3 Months or Most Recently Relevant to Health Maintenance [place] [address] [place] [address] C3
== END 2025-05-22 01:01 | disposition home or self-care (01) ==
PROVIDERS: Emergency Medicine; Physician Assistant Medical; Emergency Provider Emergency Medicine
DX: R07.9 Chest pain, unspecified (principal); E11.9 Type 2 diabetes mellitus without complications; Z79.899 Other long term (current) drug therapy
CPT/HCPCS: 36415; 71046; 80048; 80076; 81001; 82010; 82803; 82947; 83735; 84484; 85025; 93005; 96361; 96374; 99284; 99285; J7120

== ENCOUNTER → 2025-05-21 17:05 | Outpatient (BNV) | payer MEDICAID, SELFPAY | PROVIDERS: Emergency Provider Emergency Medicine; Visit Provider Internal Medicine Cardiovascular Disease | DX: R07.9 Chest pain, unspecified (principal) | CPT/HCPCS: 93010 ==

== ENCOUNTER → 2025-05-21 18:09 | Outpatient (BNV) | payer MEDICAID, SELFPAY | PROVIDERS: Visit Provider Specialist | DX: R07.9 Chest pain, unspecified (principal) | CPT/HCPCS: 71046 ==